=== PATIENT | male | born 1990 ===

== ENCOUNTER 2024-05-27 19:06 | Emergency (ER) | payer OTHER ==
[~2024-05-27] VITALS: Ht 175.3 cm; Wt 112.5 kg
[2024-05-27 19:34] VITALS: BP 136/84; PULSE 83; RESP 18; TEMP 99.8; O2SAT 98
[2024-05-27 19:47] LABS: COVID AG,FIA SOURCE NASAL SWAB
[2024-05-27 20:07] LABS: INFLUENZA TYPE B NEGATIVE FOR TYPE B (NEGATIVE)
[2024-05-27 20:08] LABS: SARS-COV2 (COVID) ANTIGEN,FIA Negative (Negative)
[2024-05-27 20:14] LABS: INFLUENZA TYPE A POSITIVE FOR TYPE A (NEGATIVE)
[2024-05-27] MEDS ORDERED: OSEL75CA45 PO (21:11)
== END 2024-05-27 21:25 | disposition home or self-care (01) ==
LOC: EMS 19:06
DX: J11.1 Influenza due to unidentified influenza virus with other respiratory manifestations (principal); I10 Essential (primary) hypertension; Z20.822 Contact with and (suspected) exposure to COVID-19
CPT/HCPCS: 87804; 99283